=== PATIENT | male | born 1995 | race African-American/Black ===

== ENCOUNTER 2019-06-23 10:15 | Emergency (ER) | payer BC, OTHER ==
[~2019-06-23] VITALS: Ht 165.1 cm; Wt 69.9 kg
--- NOTE | 2019-06-23 10:18 | NUR ---
abrasions to bilateral upper extremities from patient while at work. to er 2, dr shrestha at bedside
[2019-06-23] MEDS ORDERED: TDAP [DIPH/PERTUSSIS/TET] 0.5 ML VIAL IM ONE ×2 (10:24→10:30)
[2019-06-23 10:30] VITALS: BP 142/76
--- NOTE | 2019-06-23 10:30 | NUR ---
Patient discharged to home in stable condition. Written and verbal after care instructions given. Patient verbalizes understanding of instruction.
== END 2019-06-23 10:32 | disposition home or self-care (01) ==
LOC: ER 10:15
DX: S60.812A Abrasion of left wrist, initial encounter (principal); S60.811A Abrasion of right wrist, initial encounter; X58.XXXA Exposure to other specified factors, initial encounter; Y93.89 Activity, other specified; Y92.89 Other specified places as the place of occurrence of the external cause; Y99.0 Civilian activity done for income or pay
CPT/HCPCS: 90715

== ENCOUNTER 2019-07-25 17:24 | Emergency (ER) | payer BC, OTHER ==
[~2019-07-25] VITALS: Ht 170.2 cm; Wt 72.6 kg
[2019-07-25] MEDS ORDERED: IBUPROFEN 600 MG TABLET PO ONE ×2 (17:41→18:00)
[2019-07-25] MEDS ORDERED: HYDROCODONE/APAP 10/325MG 1 EA TABLET ONE (17:41)
[2019-07-25] MEDS ORDERED: HYDROCODONE/APAP 10/325MG 1 EA TABLET PO ONE (18:00)
--- NOTE | 2019-07-25 18:40 | NUR ---
PT REC'D CRUTCHES AND AN ALLEGRA WRAP TO THE RT ANKLE. Patient discharged to home in stable condition. Written and verbal after care instructions given. Patient verbalizes understanding of instruction AND RX. PT'S MOTHER IS DRIVING PT HOME. VSS
[2019-07-25 18:41] VITALS: BP 121/70
--- NOTE | 2019-07-25 18:42 | NUR ---
PT REC'D AN EXCUSE FOR WORK THROUGH 07/28
== END 2019-07-25 18:41 | disposition home or self-care (01) ==
LOC: ER 17:27
DX: S93.401A Sprain of unspecified ligament of right ankle, initial encounter (principal); S93.691A Other sprain of right foot, initial encounter; S76.011A Strain of muscle, fascia and tendon of right hip, initial encounter; W18.2XXA Fall in (into) shower or empty bathtub, initial encounter; Y93.89 Activity, other specified; Y92.89 Other specified places as the place of occurrence of the external cause; Y99.8 Other external cause status
CPT/HCPCS: 73502; 73610-TC; 73630-TC

== ENCOUNTER 2019-07-27 16:13 | Emergency (ER) | payer BC, OTHER ==
[~2019-07-27] VITALS: Ht 167.6 cm; Wt 70.3 kg
--- NOTE | 2019-07-27 16:33 | NUR ---
DR BOBO AT BEDSIDE FOR EVAL.
[2019-07-27] MEDS ORDERED: MAG HYDROX/AL HYDROX/SIMETH 30 ML UDC ONE (16:39)
[2019-07-27] MEDS ORDERED: FAMOTIDINE (20 MG) 20 MG TABLET ONE (16:39)
--- NOTE | 2019-07-27 16:43 | NUR ---
RADIOLOGY AT BEDSIDE FOR CHEST XRAY.
[2019-07-27] MEDS ORDERED: MAG HYDROX/AL HYDROX/SIMETH 30 ML UDC PO ONE (17:00)
[2019-07-27] MEDS ORDERED: FAMOTIDINE (20 MG) 20 MG TABLET PO ONE (17:00)
[2019-07-27 17:44] VITALS: BP 129/77
--- NOTE | 2019-07-27 17:44 | NUR ---
Patient discharged to home in stable condition. Written and verbal after care instructions given. Patient verbalizes understanding of instruction.
== END 2019-07-27 17:46 | disposition home or self-care (01) ==
LOC: ER 16:16
DX: R07.89 Other chest pain (principal); K21.9 Gastro-esophageal reflux disease without esophagitis
CPT/HCPCS: 71045-TC

== ENCOUNTER 2019-09-08 11:20 | Outpatient (CLI) | payer BC, OTHER | END 2019-09-08 23:59 | disposition home or self-care (01) | LOC: CT 11:20 | PROVIDERS: ATTEND Legal Medicine | DX: S06.0X9A Concussion with loss of consciousness of unspecified duration, initial encounter (principal); X58.XXXA Exposure to other specified factors, initial encounter; Y93.89 Activity, other specified; Y92.89 Other specified places as the place of occurrence of the external cause; Y99.8 Other external cause status | CPT/HCPCS: 70450-TC ==

== ENCOUNTER 2019-09-12 11:31 | Outpatient (CLI) | payer BC, OTHER | END 2019-09-12 23:59 | disposition home or self-care (01) | LOC: MRI 11:31 | PROVIDERS: ATTEND Legal Medicine | DX: M47.27 Other spondylosis with radiculopathy, lumbosacral region (principal); M48.07 Spinal stenosis, lumbosacral region; M43.17 Spondylolisthesis, lumbosacral region | CPT/HCPCS: 72148-TC ==

== ENCOUNTER 2020-02-07 01:40 | Emergency (ER) | payer BC, OTHER ==
[~2020-02-07] VITALS: Ht 165.1 cm; Wt 61.2 kg
[2020-02-07 01:42] VITALS: BP 128/61
== END 2020-02-07 01:55 | disposition home or self-care (01) ==
LOC: ER 01:42
DX: Z20.828 Contact with and (suspected) exposure to other viral communicable diseases (principal)
CPT/HCPCS: 99283; C9803; U0003

== ENCOUNTER 2020-07-10 23:35 | Emergency (ER) | payer BC, OTHER ==
--- NOTE | 2020-07-10 23:35 | NUR ---
PT BIBSELF FOR ABD PAIN, PT AAOX4, -SOB, NADN OTED. PLACED ON MONITOR, VSS, PENDING MD PAZ
[2020-07-10] MEDS ORDERED: ONDANSETRON HCL/PF 4 MG/2 ML VIAL ONE (23:52)
[2020-07-10] MEDS ORDERED: MORPHINE SULFATE INJ 4 MG/ML DISP.SYRIN ONE (23:52)
--- NOTE | 2020-07-10 23:52 | NUR ---
urine collected. sent to lab
[2020-07-11] MEDS ORDERED: MORPHINE SULFATE INJ 2 MG/ML DISP.SYRIN IV ONE
[2020-07-11] MEDS ORDERED: IV NS 0.9% 1,000 ML BAG IV ONE
[2020-07-11] MEDS ORDERED: ONDANSETRON HCL/PF 4 MG/2 ML VIAL IVP ONE
--- NOTE | 2020-07-11 00:04 | NUR ---
PT WAS TAKEN TO CT
[2020-07-11 00:10] LABS: BASOPHILS # (AUTO) 0.1 /CMM (0.0-0.2); BASOPHILS % (AUTO) 1.1 % (0.0-2.0); EOSINOPHILS % (AUTO) 5.8 % (0.0-6.0); HEMATOCRIT 44 % (39-51); HEMOGLOBIN 13.6 g/dL (13.5-17.5); LYMPHOCYTES % (AUTO) 37.4 % (20.0-44.0); MEAN CORPUSCULAR HGB CONC 31 g/dl (31.0-36.0); MEAN CORPUSCULAR VOLUME 75 fL (80-96); MONOCYTES # (AUTO) 0.5 /CMM (0.1-1.30); MONOCYTES % (AUTO) 9.8 % (2.0-12.0); NEUTROPHILS # (AUTO) 2.4 /CMM (1.8-8.9); NEUTROPHILS % (AUTO) 45.9 % (43.0-81.0); PLATELET COUNT (AUTO) 208 /CMM (150-450); RED BLOOD CELL COUNT(AUTO) 5.81 MIL/uL (4.5-6.0); WHITE BLOOD COUNT (AUTO) 5.2 K/uL (4.3-11.0)
--- NOTE | 2020-07-11 00:12 | NUR ---
BACK FROM CT
[2020-07-11 00:15] LABS: BILIRUBIN,URINE NEGATIVE (NEGATIVE); COLOR,URINE YELLOW (YELLOW); LEUKOCYTE ESTERASE ,URINE NEGATIVE (NEGATIVE); NITRITE, URINE NEGATIVE (NEGATIVE); PH,URINE 6.5 (5.0-8.0); PROTEIN,URINE NEGATIVE (NEGATIVE); UGLUCOSE NEGATIVE (NEGATIVE); UROBILINOGEN,URINE 0.2 EU/dL (0.2)
[2020-07-11 00:20] LABS: CALCIUM, SERUM 8.8 mg/dL (8.5-10.1); CREATININE 1.1 mg/dL (0.6-1.3); POTASSIUM 3.8 mmol/L (3.5-5.1)
[2020-07-11 00:27] LABS: ALBUMIN 3.5 g/dL (3.4-5.0); BILIRUBIN,DIRECT 0.1 mg/dL (0.0-0.2); BILIRUBIN,TOTAL 0.5 mg/dL (0.2-1.0); TOTAL PROTEIN, SERUM 6.9 g/dL (6.4-8.2)
[2020-07-11] MEDS ORDERED: DOCU-141 PO (00:53)
--- NOTE | 2020-07-11 01:04 | NUR ---
Patient discharged to home in stable condition. Written and verbal after care instructions given. Patient verbalizes understanding of instruction. IV removed. Catheter intact and site benign. Pressure and 4x4 applied to site. No bleeding noted.
[2020-07-11 01:07] VITALS: BP 129/75
== END 2020-07-11 01:08 | disposition home or self-care (01) ==
LOC: ER 23:36
DX: R10.84 Generalized abdominal pain (principal); R11.2 Nausea with vomiting, unspecified; R19.7 Diarrhea, unspecified; Z79.899 Other long term (current) drug therapy
CPT/HCPCS: 36415; 74176; 80048; 80076; 81003; 83690; 85025; 85730; 96361; 96374; 96375; 99284; J2270; J2405

== ENCOUNTER 2020-10-17 09:55 | Outpatient (CLI) | payer BC, OTHER ==
[~2020-10-17 09:55] MED LIST: DOCU-141 PO
[2020-10-17 11:19] LABS: BASOPHILS # (AUTO) 0.1 K/uL (0.0-0.2); BASOPHILS % (AUTO) 1.4 % (0.0-2.0); EOSINOPHILS % (AUTO) 3.1 % (0.0-6.0); HEMATOCRIT 44 % (39-51); HEMOGLOBIN 14.3 g/dL (13.5-17.5); LYMPHOCYTES # (AUTO) 1.9 K/uL (0.8-4.8); LYMPHOCYTES % (AUTO) 37.3 % (20.0-44.0); MEAN CORPUSCULAR HGB CONC 32 g/dl (31.0-36.0); MEAN CORPUSCULAR VOLUME 74 fL (80-96); MONOCYTES # (AUTO) 0.4 K/uL (0.1-1.30); MONOCYTES % (AUTO) 8.3 % (2.0-12.0); NEUTROPHILS # (AUTO) 2.5 K/uL (1.8-8.9); NEUTROPHILS % (AUTO) 49.9 % (43.0-81.0); PLATELET COUNT (AUTO) 252 K/uL (150-450); RED BLOOD CELL COUNT(AUTO) 5.99 MIL/uL (4.5-6.0); WHITE BLOOD COUNT (AUTO) 5.1 K/uL (4.3-11.0)
[2020-10-17 11:30] LABS: BILIRUBIN,URINE NEGATIVE (NEGATIVE); COLOR,URINE YELLOW (YELLOW); LEUKOCYTE ESTERASE ,URINE NEGATIVE (NEGATIVE); NITRITE, URINE NEGATIVE (NEGATIVE); PROTEIN,URINE NEGATIVE (NEGATIVE); UGLUCOSE NEGATIVE (NEGATIVE); UROBILINOGEN,URINE 0.2 EU/dL (0.2)
[2020-10-17 11:47] LABS: BACTERIA,URINE Few /HPF (None Seen); RBC,URINE NONE SEEN /HPF (0-2); SQUAMOUS EPITHELIAL CELL,UR Rare /HPF (None Seen); URINE AMORPHOUS PHOSPHATES Many /HPF (None Seen); WBC,URINE 0-2 /HPF (0-3)
[2020-10-17 11:48] LABS: ALBUMIN 3.9 g/dL (3.4-5.0); BILIRUBIN,TOTAL 0.9 mg/dL (0.2-1.0); CALCIUM, SERUM 9.3 mg/dL (8.5-10.1); CREATININE 1.2 mg/dL (0.6-1.3); POTASSIUM 3.5 mmol/L (3.5-5.1); TOTAL PROTEIN, SERUM 7.5 g/dL (6.4-8.2)
[2020-10-17 12:00] LABS: THYROID STIMULATING HORMONE 0.691 uIU/mL (0.358-3.74)
== END 2020-10-17 23:59 | disposition home or self-care (01) ==
LOC: LAB 09:55
PROVIDERS: ATTEND Legal Medicine
DX: I12.9 Hypertensive chronic kidney disease with stage 1 through stage 4 chronic kidney disease, or unspecified chronic kidney disease (principal); E11.22 Type 2 diabetes mellitus with diabetic chronic kidney disease; N18.9 Chronic kidney disease, unspecified; E78.5 Hyperlipidemia, unspecified; E03.9 Hypothyroidism, unspecified; D64.9 Anemia, unspecified; E55.9 Vitamin D deficiency, unspecified; R53.1 Weakness; R30.0 Dysuria; Z00.00 Encounter for general adult medical examination without abnormal findings
CPT/HCPCS: 36415; 80053-TC; 80061-TC; 81001; 84402; 84403; 84439-TC; 84443-TC; 85025-TC; 86592; 86694; 87491; 87591; 87806

== ENCOUNTER 2020-11-15 08:13 | Outpatient (CLI) | payer BC, OTHER | END 2020-11-15 23:59 | disposition home or self-care (01) | LOC: LAB 08:13 | PROVIDERS: ATTEND Legal Medicine | DX: R30.0 Dysuria (principal) | CPT/HCPCS: 36415; 87806 ==

== ENCOUNTER 2021-04-09 10:06 | Emergency (ER) | payer BC, OTHER ==
[~2021-04-09] VITALS: Ht 167.6 cm; Wt 72.6 kg
[2021-04-09 10:13] VITALS: BP 138/80
--- NOTE | 2021-04-09 10:43 | NUR ---
SEEN AND EVALUATED. SWABBED FOR COVID AND SENT TO LAB. DISCHARGED IN STABLE CONDITION.
--- NOTE | 2021-04-11 11:16 | NUR ---
NOTIFIED PATIENT THAT HIS COVID RESULTS WERE POSITIVE OVER THE PHONE.
== END 2021-04-09 10:44 | disposition home or self-care (01) ==
LOC: ER 10:07
DX: U07.1 COVID-19 (principal)
CPT/HCPCS: 99283; C9803; U0003

== ENCOUNTER 2021-07-23 05:22 | Emergency (ER) | payer BC, OTHER ==
[~2021-07-23] VITALS: Ht 167.6 cm; Wt 79.4 kg
[2021-07-23 05:25] VITALS: BP 105/68
[2021-07-23] MEDS ORDERED: LIDOCAINE 5% (PATCH) 1 EA PATCH TP ONE (05:43)
[2021-07-23] MEDS ORDERED: LIDO700A30 TP (05:45)
[2021-07-23] MEDS ORDERED: CYCL10TA9 PO (05:45)
[2021-07-23] MEDS ORDERED: NAPR-1009 PO (05:45)
[2021-07-23] MEDS ORDERED: CYCLOBENZAPRINE 10 MG TABLET ONE (05:46)
[2021-07-23] MEDS ORDERED: KETOROLAC TROMETHAMINE 15 MG/ML VIAL ONE (05:46)
--- NOTE | 2021-07-23 05:53 | NUR ---
lidocaine patch taken from [facility]
[2021-07-23] MEDS ORDERED: CYCLOBENZAPRINE 10 MG TABLET PO ONE (06:00)
[2021-07-23] MEDS ORDERED: LIDOCAINE 5% (PATCH) 1 EA PATCH TP SCH (06:00)
[2021-07-23] MEDS ORDERED: KETOROLAC TROMETHAMINE INJ 60 MG/2 ML VIAL IM ONE (06:00)
--- NOTE | 2021-07-23 06:01 | NUR ---
Patient discharged to home in stable condition. Written and verbal after care instructions given. Patient verbalizes understanding of instruction.
== END 2021-07-23 06:02 | disposition home or self-care (01) ==
LOC: ER 05:24
DX: S23.3XXA Sprain of ligaments of thoracic spine, initial encounter (principal); Z79.899 Other long term (current) drug therapy; X58.XXXA Exposure to other specified factors, initial encounter; Y93.89 Activity, other specified; Y92.89 Other specified places as the place of occurrence of the external cause; Y99.8 Other external cause status
CPT/HCPCS: 96372; 99283; J1885

== ENCOUNTER 2021-10-17 06:23 | Outpatient (CLI) | payer BC, OTHER ==
[~2021-10-17 06:23] MED LIST changes: +CYCL10TA9 PO; +LIDO700A30 TP; +NAPR-1009 PO
[2021-10-17 07:51] LABS: BILIRUBIN,URINE SMALL (NEGATIVE); COLOR,URINE YELLOW (YELLOW); LEUKOCYTE ESTERASE ,URINE NEGATIVE (NEGATIVE); NITRITE, URINE NEGATIVE (NEGATIVE); PROTEIN,URINE NEGATIVE (NEGATIVE); UGLUCOSE NEGATIVE (NEGATIVE)
[2021-10-17 07:58] LABS: BASOPHILS % (AUTO) 0.7 % (0.0-2.0); EOSINOPHILS % (AUTO) 2.2 % (0.0-6.0); HEMATOCRIT 47 % (39-51); HEMOGLOBIN 15.4 g/dL (13.5-17.5); LYMPHOCYTES # (AUTO) 1.4 K/uL (0.8-4.8); LYMPHOCYTES % (AUTO) 26.5 % (20.0-44.0); MEAN CORPUSCULAR HGB CONC 33 g/dl (31.0-36.0); MEAN CORPUSCULAR VOLUME 73 fL (80-96); MONOCYTES # (AUTO) 0.5 K/uL (0.1-1.30); MONOCYTES % (AUTO) 8.4 % (2.0-12.0); NEUTROPHILS # (AUTO) 3.4 K/uL (1.8-8.9); NEUTROPHILS % (AUTO) 62.2 % (43.0-81.0); PLATELET COUNT (AUTO) 206 K/uL (150-450); RED BLOOD CELL COUNT(AUTO) 6.39 MIL/uL (4.5-6.0); WHITE BLOOD COUNT (AUTO) 5.5 K/uL (4.3-11.0)
[2021-10-17 08:32] LABS: RBC,URINE NONE SEEN /HPF (0-2); WBC,URINE NONE SEEN /HPF (0-3)
[2021-10-17 08:33] LABS: BACTERIA,URINE Rare /HPF (None Seen); CALCIUM OXALATE CRYSTALS,UR Moderate /HPF (None Seen); SQUAMOUS EPITHELIAL CELL,UR None Seen /HPF (None Seen)
[2021-10-17 08:39] LABS: THYROID STIMULATING HORMONE 1.036 uIU/mL (0.358-3.74); URIC ACID 4.7 mg/dL (2.6-7.2)
[2021-10-17 08:48] LABS: ALBUMIN 4.4 g/dL (3.4-5.0); BILIRUBIN,TOTAL 1.5 mg/dL (0.2-1.0); CALCIUM, SERUM 9.4 mg/dL (8.5-10.1); CREATININE 1.2 mg/dL (0.6-1.3); POTASSIUM 3.9 mmol/L (3.5-5.1); TOTAL PROTEIN, SERUM 8.3 g/dL (6.4-8.2)
[2021-10-17 13:31] LABS: EOSINOPHILS % (MANUAL) 1 % (0-4); LYMPHOCYTES % (MANUAL) 30 % (16-48); MONOCYTES % (MANUAL) 7 % (0-11.0); NEUTROPHILS % (MANUAL) 62 (42-76)
== END 2021-10-17 23:59 | disposition home or self-care (01) ==
LOC: LAB 06:23
PROVIDERS: ATTEND Legal Medicine
DX: Z00.00 Encounter for general adult medical examination without abnormal findings (principal); E11.9 Type 2 diabetes mellitus without complications; E55.9 Vitamin D deficiency, unspecified; E78.00 Pure hypercholesterolemia, unspecified; I10 Essential (primary) hypertension; D64.9 Anemia, unspecified
CPT/HCPCS: 36415; 80053-TC; 80061-TC; 81001; 82306; 82607-TC; 82728-TC; 83540-TC; 84402; 84403; 84439-TC; 84443-TC; 84550-TC; 85025-TC; 86803

== ENCOUNTER 2021-11-27 08:53 | Outpatient (CLI) | payer BC, OTHER ==
[2021-11-27 10:13] LABS: BILIRUBIN,URINE NEGATIVE (NEGATIVE); COLOR,URINE YELLOW (YELLOW); LEUKOCYTE ESTERASE ,URINE NEGATIVE (NEGATIVE); NITRITE, URINE NEGATIVE (NEGATIVE); PROTEIN,URINE NEGATIVE (NEGATIVE); UGLUCOSE NEGATIVE (NEGATIVE)
[2021-11-27 12:02] LABS: BACTERIA,URINE Rare /HPF (None Seen); MUCUS,URINE Many /LPF (None Seen); RBC,URINE 0-2 /HPF (0-2); SQUAMOUS EPITHELIAL CELL,UR Few /HPF (None Seen)
== END 2021-11-27 23:59 | disposition home or self-care (01) ==
LOC: LAB 08:53
PROVIDERS: ATTEND Legal Medicine
DX: N39.0 Urinary tract infection, site not specified (principal); R30.0 Dysuria
CPT/HCPCS: 81001; 86592; 86593; 86694; 86803; 87086-TC; 87491; 87591; 87806

== ENCOUNTER 2022-04-08 06:54 | Emergency (ER) | payer BC, OTHER ==
[~2022-04-08] VITALS: Ht 167.6 cm; Wt 63.5 kg
--- NOTE | 2022-04-08 07:14 | NUR ---
PT WALKED INTO ER C/O BILATERAL NECK SWELLING X 1 DAY. PT DENIES TRAUMA. DENIES ANY PAIN, NO SOB. DENIES FEVER OR CHILLS. BREATHING EVEN AND UNLABORED. AAOX4. AMBULATORY WITH STEADY GAIT.
[2022-04-08] MEDS ORDERED: IBUP-1955 PO (07:26)
--- NOTE | 2022-04-08 07:40 | NUR ---
Patient discharged to home in stable condition. Written and verbal after care instructions given. Patient verbalizes understanding of instruction.
[2022-04-08 07:41] VITALS: BP 144/84
== END 2022-04-08 07:41 | disposition home or self-care (01) ==
LOC: ER 06:54
DX: Z00.00 Encounter for general adult medical examination without abnormal findings (principal); Z79.899 Other long term (current) drug therapy

== ENCOUNTER 2022-04-08 08:30 | Outpatient (CLI) | payer BC, OTHER ==
[~2022-04-08 08:30] MED LIST changes: +IBUP-1955 PO
== END 2022-04-08 23:59 | disposition home or self-care (01) ==
LOC: LAB 08:30
PROVIDERS: ATTEND Legal Medicine
DX: Z11.3 Encounter for screening for infections with a predominantly sexual mode of transmission (principal)
CPT/HCPCS: 36415; 87806

== ENCOUNTER 2022-08-11 12:37 | Outpatient (CLI) | payer BC, OTHER ==
[2022-08-11 13:51] LABS: BASOPHILS % (AUTO) 0.9 % (0.0-2.0); EOSINOPHILS % (AUTO) 4.9 % (0.0-6.0); HEMATOCRIT 47 % (39-51); HEMOGLOBIN 14.8 g/dL (13.5-17.5); LYMPHOCYTES # (AUTO) 1.7 K/uL (0.8-4.8); LYMPHOCYTES % (AUTO) 39.1 % (20.0-44.0); MEAN CORPUSCULAR HGB CONC 31 g/dl (31.0-36.0); MEAN CORPUSCULAR VOLUME 75 fL (80-96); MONOCYTES # (AUTO) 0.4 K/uL (0.1-1.30); MONOCYTES % (AUTO) 8.8 % (2.0-12.0); NEUTROPHILS % (AUTO) 46.3 % (43.0-81.0); PLATELET COUNT (AUTO) 228 K/uL (150-450); WHITE BLOOD COUNT (AUTO) 4.4 K/uL (4.3-11.0)
[2022-08-11 13:53] LABS: BILIRUBIN,URINE NEGATIVE (NEGATIVE); COLOR,URINE YELLOW (YELLOW); LEUKOCYTE ESTERASE ,URINE NEGATIVE (NEGATIVE); NITRITE, URINE NEGATIVE (NEGATIVE); PROTEIN,URINE NEGATIVE (NEGATIVE); UGLUCOSE NEGATIVE (NEGATIVE); UROBILINOGEN,URINE 0.2 EU/dL (0.2)
[2022-08-11 14:15] LABS: THYROID STIMULATING HORMONE 0.986 uIU/mL (0.358-3.74)
[2022-08-11 14:29] LABS: ALBUMIN 3.9 g/dL (3.4-5.0); BILIRUBIN,TOTAL 0.6 mg/dL (0.2-1.0); CALCIUM, SERUM 9.9 mg/dL (8.5-10.1); CREATININE 1.4 mg/dL (0.6-1.3); POTASSIUM 3.6 mmol/L (3.5-5.1); TOTAL PROTEIN, SERUM 7.2 g/dL (6.4-8.2)
== END 2022-08-11 23:59 | disposition home or self-care (01) ==
LOC: LAB 12:37
PROVIDERS: ATTEND Legal Medicine
DX: Z00.00 Encounter for general adult medical examination without abnormal findings (principal); E11.9 Type 2 diabetes mellitus without complications; E55.9 Vitamin D deficiency, unspecified; R53.1 Weakness; E03.9 Hypothyroidism, unspecified; D64.9 Anemia, unspecified; E78.00 Pure hypercholesterolemia, unspecified
CPT/HCPCS: 36415; 80053-TC; 80061-TC; 82306; 82607-TC; 82670; 82728-TC; 83540-TC; 84402; 84403; 84443-TC; 85025-TC

== ENCOUNTER 2024-03-03 00:18 | Emergency (ER) | payer BC, OTHER ==
[~2024-03-03] VITALS: Ht 165.1 cm; Wt 68.0 kg
[2024-03-03 00:26] VITALS: BP 128/84; TEMP 98.2
[2024-03-03 01:09] VITALS: O2SAT 99
[2024-03-03 13:00] LABS: HIV-1 p24 ANTIGEN NON REACTIVE (NONREACTIVE); HIV-1/2 ANTIBODY NON REACTIVE (NONREACTIVE)
[2024-03-04 11:08] LABS: CHLAMYDIA TRACHOMATIS NAA Negative (Negative); NEISSERIA GONORRHOEAE NAA Negative (Negative)
== END 2024-03-03 01:10 | disposition home or self-care (01) ==
LOC: ER 00:22
DX: Z11.3 Encounter for screening for infections with a predominantly sexual mode of transmission (principal)
CPT/HCPCS: 36415; 87491; 87591; 87806

== ENCOUNTER 2024-04-09 08:19 | Emergency (ER) | payer BC, OTHER ==
[~2024-04-09] VITALS: Ht 165.1 cm; Wt 68.0 kg
[2024-04-09 08:28] VITALS: BP 129/74; TEMP 98.7
[2024-04-09 10:04] VITALS: O2SAT 100
== END 2024-04-09 10:05 | disposition home or self-care (01) ==
LOC: ER 08:30
DX: J06.9 Acute upper respiratory infection, unspecified (principal); F17.200 Nicotine dependence, unspecified, uncomplicated; Z20.822 Contact with and (suspected) exposure to COVID-19
CPT/HCPCS: 71045-TC